=== PATIENT | male | born 1985 | race Caucasian/White ===

== ENCOUNTER 2018-05-05 15:04 | Emergency (ER) | payer BC ==
[~2018-05-05] VITALS: Ht 175.3 cm; Wt 95.5 kg
[~2018-05-05 15:04] MED LIST: BACTRIM DS1 TAB PO; MUPIROCIN2 % EX; ZITHROMAX250 MG OR
[2018-05-05] MEDS ORDERED: ULTRAM50 M1 PO (15:57)
[2018-05-05 16:20] VITALS: BP 134/81
== END 2018-05-05 16:20 | disposition home or self-care (01) | DRG 563 ==
LOC: ED 15:04
PROC: 2W3PX1Z Immobilization of Left Upper Leg using Splint (ICD-10-PCS; principal; 2018-05-05)
DX: S83.92XA Sprain of unspecified site of left knee, initial encounter (principal); M25.562 Pain in left knee; M25.462 Effusion, left knee; V18.0XXA Pedal cycle driver injured in noncollision transport accident in nontraffic accident, initial encounter; Y93.55 Activity, bike riding; Y92.007 Garden or yard of unspecified non-institutional (private) residence as the place of occurrence of the external cause
CPT/HCPCS: L1830

== ENCOUNTER 2021-09-28 08:42 | Emergency (ER) | payer BC ==
[~2021-09-28] VITALS: Ht 175.3 cm; Wt 87.0 kg
[~2021-09-28 08:42] MED LIST changes: +ULTRAM50 M1 PO
[2021-09-28 08:56] VITALS: BP 145/90
[2021-09-28 09:23] LABS: HEMATOCRIT 42.3 % (39.0-50.0); HEMOGLOBIN 14.2 g/dl (14.0-18.0); IMMATURE GRANULOCYTES 0.5 % (0.0-5.0); MEAN CELL VOLUME 84.8 fL CALC (80.0-100.0); MEAN CORPUSCULAR HGB 28.5 pG CALC (26.0-32.0); MEAN CORPUSCULAR HGB CONC 33.6 g/dL CAL (32.0-36.0); NEUT# 4.66 thou/uL (1.82-7.42); RED BLOOD COUNT 4.99 mill/uL (4.70-6.10); RED CELL DISTRI WIDTH 12.9 % (11.5-15.5)
[2021-09-28 09:35] LABS: ALBUMIN 4.3 g/dL (3.2-5.0); ALKALINE PHOSPHATASE 80 u/l (38-126); ANION GAP 9 (6-22 (CALC)); BILIRUBIN, TOTAL 1.3 mg/dL (0.0-1.4); BUN 13 mg/dL (9-20); BUN/CREATININE RATIO 13 (12-20 (CALC)); CARBON DIOXIDE 25 mmol/l (22-30); CHLORIDE 108 mmol/l (95-108); GFR > 60 ML/MIN (>=60 (CALC)); GFR FOR AFR.AMER. > 60 ML/MIN (>=60 (CALC)); LIPASE 55 u/l (23-300); POTASSIUM 3.9 mmol/l (3.5-5.1); SGOT/AST 27 u/l (17-59); SODIUM 138 mmol/l (137-146); TOTAL PROTEIN 6.8 g/dL (6.3-8.2)
[2021-09-28 10:16] VITALS: BP 140/84
[2021-09-28 10:35] LABS: URINE BILIRUBIN - DIPSTICK NEGATIVE (NEGATIVE); URINE BLOOD DIPSTICK NEGATIVE (NEGATIVE); URINE COLOR YELLOW; URINE GLUCOSE - DIPSTICK NEGATIVE (NEGATIVE); URINE KETONE NEGATIVE (NEGATIVE); URINE LEUK ESTERASE NEGATIVE (NEGATIVE); URINE PROTEIN - DIPSTICK NEGATIVE (NEG-TRACE); URINE SPECIFIC GRAVITY 1.015; URINE UROBILINOGEN - DIPSTICK 0.2 E.U./dL (0.2)
[2021-09-28 10:59] LABS: URINE NITRITE - DIPSTICK NEGATIVE (Negative)
[2021-09-28 12:45] VITALS: BP 145/90
== END 2021-09-28 13:00 | disposition home or self-care (01) | DRG 395 ==
LOC: ED 08:42
PROVIDERS: Internal Medicine
DX: K40.90 Unilateral inguinal hernia, without obstruction or gangrene, not specified as recurrent (principal); F17.200 Nicotine dependence, unspecified, uncomplicated
CPT/HCPCS: Q9967